=== PATIENT | female | born 1975 ===

== ENCOUNTER 2019-09-20 15:43 | Emergency (ER) | payer SELFPAY ==
[~2019-09-20] VITALS: Ht 172.7 cm; Wt 71.8 kg
[2019-09-20 15:48] VITALS: BP 157/87; PULSE 55; RESP 16; Ht 172.7 cm; Wt 71.8 kg
== END 2019-09-20 17:40 | disposition left against medical advice (07) ==
LOC: E/R 15:43
DX: Z53.21 Procedure and treatment not carried out due to patient leaving prior to being seen by health care provider (principal)